=== PATIENT | male | born 1965 | race Caucasian/White ===

== ENCOUNTER → 2020-05-12 | Outpatient (CLI) | payer BC ==
--- NOTE | 2020-05-12 10:24 | XR ---
Lumbar spine HISTORY: Low back pain 3 views the lumbar spine Hypertrophic spondylosis is noted. There is mild spinal curvature. Lumbar vertebral bodies show prese rved height. Loss of disc height present at intervertebral levels especially L4-5, L3-4, L2-3, minima l retrolisthesis grade 1 L3-4, L4-5. Sclerosis present in the posterior elements of the lower lumbar spine. Atherosclerotic vascular calcifications noted in the aortoiliac distribution. IMPRESSION: Degenerative disc disease, lumbar facet arthropathy. Spinal curvature.
--- NOTE | 2020-05-12 10:26 | XR ---
Right knee HISTORY: Pain in right knee Frontal and lateral views of the right knee Bone mineralization, joint spaces and alignment are maintained. Difficult to exclude minimal effusion , faint suprapatellar increased attenuation noted. There is overlying artifact. There are vascular ca lcifications present. No fracture or dislocation. IMPRESSION: Possible small joint effusion
--- NOTE | 2020-05-12 11:33 | CT ---
EXAMINATION TYPE: CT abdomen wo/w con DATE OF EXAM: 05/12/2020 COMPARISON: NONE HISTORY: 54-year-old male Chronic pancreatitis TECHNIQUE: Contiguous axial scanning of the abdomen before and after administration of 100 ml Isovue 300 IV contrast. Arterial and portal venous phase imaging is performed. Coronal/sagittal reconstruct ions performed. CT DLP: 1055.5 mGycm Automated exposure control for dose reduction was used. FINDINGS: Heart normal size without pericardial effusion. Three-vessel coronary artery calcifications are prese nt in remarkable for coronary artery disease. Some reticular subpleural opacities in the visualized l ower lungs suggesting interstitial fibrosis. No pleural effusion. Small hiatal hernia. There are geographic areas of low-attenuation within the liver especially the right liver lobe. Findi ng suspect reflect areas of hepatic steatosis. Portal venous system is patent. No biliary ductal dila tation. Gallbladder, adrenal glands, kidneys, and spleen appear within normal limits. Assessment of the pancreas shows no abnormal mass or calcifications. No evident dilatation of the destiny n pancreatic duct. No surrounding inflammatory changes or fluid collection is identified. No dilated small bowel, free fluid, free air. No mesenteric or retroperitoneal lymphadenopathy. Mild atherosclerotic calcifications infrarenal abdominal aorta and visualized common iliac arteries. Mild stool within the colon. No pericolic inflammatory change seen. Pelvis is not imaged. Bones: Hypertrophic facet arthropathy lumbar spine with grade 1 retrolisthesis L2-L3 and L3-L4. Disc osteophyte complexes at both these levels may contribute to a significant spinal canal stenosis espec ially at L2-L3. IMPRESSION: 1. NO DISCRETE CT ABNORMALITY OF THE PANCREAS. NO SPECIFIC FINDINGS OF ACUTE OR CHRONIC PANCREATITIS AT THIS TIME. 2. GEOGRAPHIC AREAS OF LOW ATTENUATION THROUGHOUT THE RIGHT LIVER LOBE SUGGEST GEOGRAPHIC FATTY INFIL TRATION. 3. CAD AND SMALL HIATAL HERNIA. 4. DEGENERATIVE DISC DISEASE AND HYPERTROPHIC FACET ARTHROPATHY L2-L3 AND L3-L4 WITH GRADE 1 RETROLIS THESIS AT THESE LEVELS. DISC OSTEOPHYTE COMPLEX AT BOTH OF THESE LEVELS MAY CONTRIBUTE TO A SIGNIFICA NT SPINAL CANAL STENOSIS AT L2-L3.
== END | disposition home or self-care (01) ==
LOC: RADCTMAIN 08:54
PROVIDERS: ATTEND Internal Medicine Geriatric Medicine
DX: M51.36 Other intervertebral disc degeneration, lumbar region (principal); M47.816 Spondylosis without myelopathy or radiculopathy, lumbar region; M43.8X6 Other specified deforming dorsopathies, lumbar region; M25.561 Pain in right knee; K86.1 Other chronic pancreatitis; I25.10 Atherosclerotic heart disease of native coronary artery without angina pectoris; K44.9 Diaphragmatic hernia without obstruction or gangrene; M25.78 Osteophyte, vertebrae
CPT/HCPCS: 72100; 73560; 74170; Q9967

== ENCOUNTER 2024-09-23 11:06 | Observation (INO) | payer BC ==
[2024-09-23] MEDS: SODIUM CHLORIDE 0.9% 1,000 ML IV ONE (11:54)
[2024-09-23 12:04] LABS: Basophils # (A) 0.06 10*3/uL (0.00-0.10); Basophils % (A) 0.7 %; Eosinophils # (A) 0.01 10*3/uL (0.04-0.35); Eosinophils % (A) 0.1 %; HCT 43.6 % (39.6-50.0); HGB 15.9 g/dL (13.0-17.0); Lymphocytes # (A) 0.74 10*3/uL (0.90-5.00); Lymphocytes % (A) 8.3 %; MCH 35.5 pg (27.0-32.0); MCHC 36.5 g/dL (32.0-37.0); MCV 97.3 fL (80.0-97.0); Mean Platelet Volume 9.6 fL (9.5-12.2); Monocytes # (A) 0.73 10*3/uL (0.20-1.00); Monocytes % (A) 8.2 %; Neutrophils # (A) 7.27 10*3/uL (1.80-7.70); Platelet Count 123 10*3/uL (140-440); RBC 4.48 10*6/uL (4.40-5.60); RDW 11.9 % (11.5-14.5); WBC 8.87 10*3/uL (4.50-10.00)
--- NOTE | 2024-09-23 12:10 | XR ---
EXAMINATION TYPE: XR chest 2V DATE OF EXAM: 09/23/2024 12:03 PM COMPARISON: None. CLINICAL INDICATION: Male, 59 years old with history of Weakness, TECHNIQUE: XR chest 2V view(s) obtained. FINDINGS: The heart size is normal. The pulmonary vasculature is normal. The lungs are clear. IMPRESSION: 1. No acute pulmonary process. [facility], , 09/23/2024 12:08 PM
[2024-09-23 12:17] LABS: ALT 46 U/L (4-49); African American GFR (CKD) >90 (>60 ml/min/1.73 sqM); Albumin 4.6 g/dL (3.5-5.0); Anion Gap 17 mmol/L; Blood Urea Nitrogen 11 mg/dL (9-20); Calcium 9.7 mg/dL (8.4-10.2); Carbon Dioxide 29 mmol/L (22-30); Chloride 83 mmol/L (98-107); Glucose 134 mg/dL (74-99); Non-African American GFR(CKD) >90 (>60 ml/min/1.73 sqM); Sodium 129 mmol/L (137-145); Total Bilirubin 2.3 mg/dL (0.2-1.3); Total Protein 7.9 g/dL (6.3-8.2)
[2024-09-23 12:18] LABS: INR 1.1 (<1.2); Partial Thromboplastin Time 24.3 sec (22.0-30.0); Prothrombin Time 11.8 sec (10.0-12.5)
[2024-09-23 12:25] LABS: NT-Pro-B-Type Natriuretic Pept 90 pg/mL
[2024-09-23 12:39] LABS: Magnesium 1.1 mg/dL (1.6-2.3); Potassium 3.2 mmol/L (3.5-5.1)
[2024-09-23 12:40] LABS: AST 119 U/L (17-59); Alkaline Phosphatase 142 U/L (38-126)
--- NOTE | 2024-09-23 13:17 | CT ---
EXAMINATION TYPE: CT ChestAbdPelvis w con DATE OF EXAM: 09/23/2024 1:08 PM COMPARISON: 05/12/2020 CLINICAL INDICATION: Male, 59 years old with history of pain, weakness; PHH, WEAKNESS, LETHARDY, CP A ND PRESSURE, SOB Technique: CT ChestAbdPelvis w con; Multiple axial images were obtained. Two-dimensional coronal and sagittal reconstructions were obtained. Contrast used:100 ML mL of Isovue 300 with IV Contrast, (None if empty) Oral contrast used: without Oral Contrast CT DLP: 1053 mGycm, Automated exposure control for dose reduction was used. Findings: CHEST: LUNGS/ PLEURA: No focal consolidation, pneumothorax or pleural effusion. Prominent predominantly nader pheral interstitial lung markings. AIRWAY: Patent and unremarkable. HEART: Size within normal limits. Mild coronary artery calcifications present. MEDIASTINUM: No gross evidence of adenopathy. Prominent lymph nodes seen near the distal esophagus no t significantly changed from 05/12/2020. Epiphrenic esophageal diverticulum. VASCULATURE: No aortic aneurysm. MUSCULOSKELETAL: No acute osseous abnormalities. SOFT TISSUES/LYMPH NODES: Unremarkable. LOWER NECK: No significant findings. ABDOMEN: ABDOMEN LIVER: Diffusely hypoattenuating parenchyma. GALLBLADDER AND BILE DUCTS: Unremarkable. PANCREAS: Unremarkable. SPLEEN: Unremarkable. ADRENAL GLANDS: Unremarkable. KIDNEYS AND URETERS: No evidence of hydronephrosis or obstructing renal calculus. The ureters are unr emarkable. PELVIS BLADDER: Unremarkable REPRODUCTIVE: Unremarkable. ABDOMEN & PELVIS STOMACH AND BOWEL: No evidence of bowel obstruction. Scattered colonic diverticula. The appendix is n ormal. PERITONEUM/RETROPERITONEUM: No evidence of pneumoperitoneum or free fluid. VASCULATURE: No evidence of aortic aneurysm. MUSCULOSKELETAL: No acute osseous abnormalities LYMPH NODES: No gross evidence for lymphadenopathy. SOFT TISSUE/ABDOMINAL WALL: Fat-containing umbilical hernia. IMPRESSION: 1. No evidence for acute thoracic or abdominal process. 2. Epiphrenic esophageal diverticulum. 3. Fat-containing umbilical hernia. 4. Hepatic steatosis. 5. Colonic diverticulosis. 6. Interstitial lung markings are normal in the periphery correlate for NSIP 7. No evidence for lymphadenopathy or mass 8. Mild coronary artery calcifications. Follow up recommendations for incidental pulmonary nodules are per [employer] [place] or [employer]. [facility], Workstation: [id number], 09/23/2024 1:15 PM
--- NOTE | 2024-09-23 13:24 | ED ---
Weakness HPI - General Chief complaint: Weakness Stated complaint: SOB,Weakness Time Seen by Provider: 09/23/24 11:28 Source: patient, RN notes reviewed Mode of arrival: ambulatory Limitations: no limitations - History of Present Illness Initial comments: 59-year-old male presents emergency department complaint of weakness, dyspnea. Patient states that with any short distance walk, or exertion he has extreme shortness of breath, fatigue and palpitations. He states his heart starts racing around. Patient states that few months back he developed an allergy to lisinopril in which she had angioedema he was switched to Cardizem at this time. Patient states that ever since then has had worsening symptoms he states he cannot walk more than 10 feet without feeling short of breath. Patient states this is causing him to feel extremely fatigued he states his heart races around. He also admits to significant weight loss unintentional he states he can hardly eat or drink. Patient states he did have stress test recently which was unremarkable. Patient denies any prior lung disease - Related Data Home Medications Medication Instructions Recorded Confirmed Atorvastatin [Lipitor] 20 mg PO DAILY 04/19/19 04/24/19 DULoxetine HCL [Cymbalta] 30 mg PO DAILY 04/19/19 04/24/19 lisinopriL [Zestril] 10 mg PO DAILY 04/19/19 04/24/19 Allergies Allergy/AdvReac Type Severity Reaction Status Date / Time SHAAN Inhibitors Allergy Anaphylaxis Verified 09/23/24 11:19 Penicillins Allergy Itching Verified 04/24/19 08:44 Review of Systems ROS Statement: Those systems with pertinent positive or pertinent negative responses have been documented in the HPI. ROS Other: All systems not noted in ROS Statement are negative. Past Medical History Past Medical History: Hyperlipidemia, Hypertension Additional Past Medical History / Comment(s): 2 HERNIATED DISCS AND 2 BULGING DISCS IN BACK. NEUROPATHY DOWN RT LEG History of Any Multi-Drug Resistant Organisms: None Reported Additional Past Surgical History / Comment(s): COLONOSCOPY Past Anesthesia/Blood Transfusion Reactions: No Reported Reaction Past Psychological History: No Psychological Hx Reported Past Alcohol Use History: Occasional Past Drug Use History: None Reported - Past Family History Mother Family Medical History: No Reported History General Exam Limitations: no limitations General appearance: alert, in no apparent distress Head exam: Present: atraumatic, normocephalic, normal inspection Eye exam: Present: normal appearance, PERRL, EOMI. Absent: scleral icterus, conjunctival injection, periorbital swelling ENT exam: Present: normal exam, normal oropharynx, mucous membranes moist Neck exam: Present: normal inspection, full ROM. Absent: tenderness, meningismus, lymphadenopathy Respiratory exam: Present: normal lung sounds bilaterally. Absent: respiratory distress, wheezes, rales, rhonchi, stridor Cardiovascular Exam: Present: normal rhythm, tachycardia, normal heart sounds. Absent: systolic murmur, diastolic murmur, rubs, gallop, clicks GI/Abdominal exam: Present: soft, normal bowel sounds. Absent: distended, tenderness, guarding, rebound, rigid Neurological exam: Present: alert, oriented X3 Psychiatric exam: Present: normal affect, normal mood Course Vital Signs 09/23/24 09/23/24 11:15 14:33 Temperature 97.8 F Pulse Rate 114 H 87 Respiratory 17 20 Rate Blood Pressure 142/94 145/97 O2 Sat by Pulse 97 97 Oximetry EKG Findings - EKG Comments: EKG Findings:: EKG performed at 11: 30 sinus rhythm rate of 91 RI 131 QRS 110 QT/QTc 358/407 - EKG Results: EKG: interpreted by SHAHRAM Medical Decision Making - Medical Decision Making Was pt. sent in by a medical professional or institution (, PA, POWERHOUSE LABORER, urgent care, hospital, or usp...) When possible be specific @ -[No] Did you speak to anyone other than the patient for history (EMS, parent, family, police, friend...)? What history was obtained from this source @ -No Did you review nursing and triage notes (agree or disagree)? Why? @ -I reviewed and agree with nursing and triage notes Were old charts reviewed (outside hosp., previous admission, EMS record, old EKG, old radiological studies, urgent care reports/EKG's, usp records)? Report findings @ -No old charts were reviewed Differential Diagnosis (chest pain, altered mental status, abdominal pain women, abdominal pain men, vaginal bleeding, weakness, fever, dyspnea, syncope, headache, dizziness, GI bleed, back pain, seizure, CVA, palpatations, mental health, musculoskeletal)? @ -Differential Palpitations Ventricular arrhythmias, atrial arrhythmias, myocardial infarction, anemia, thyrotoxicosis, electrolyte imbalance, hypokalemia, pulmonary embolism, pulmonary disease, drugs, alcohol, anxiety, stress.... This is not meant to be an all-inclusive list. Differential Weakness: Hypoglycemia, shock, sepsis, hyponatremia, anemia, infection, TN, ETOH, adverse medicine reaction, overdose, stroke, this is not meant to be an all-inclusive list. EKG interpreted by me (3pts min.). @ -As above X-rays interpreted by me (1pt min.). @ -Chest x-ray shows no acute cardiopulmonary process CT interpreted by me (1pt min.). @ -CT chest abdomen pelvis showing no acute intrathoracic process, intra- abdominal process at this time U/S interpreted by me (1pt. min.). @ -None done What testing was considered but not performed or refused? (CT, X-rays, U/S, labs)? Why? @ -None What meds were considered but not given or refused? Why? @ -None Did you discuss the management of the patient with other professionals (prof essionals i.e. , PA, POWERHOUSE LABORER, lab, RT, psych nurse, social work program coordinator, antisubmarine weapons officer, teacher, precinct commanding officer, case checker)? Give summary @ -Dr. Barbosa for admission Was smoking cessation discussed for >3mins.? @ -No Was critical care preformed (if so, how long)? @ -[35 minutes Were there social determinants of health that impacted care today? How? (Homelessness, low income, unemployed, alcoholism, drug addiction, transportation, low edu. Level, literacy, decrease access to med. care, mcc, rehab)? @ -No Was there de-escalation of care discussed even if they declined (Discuss DNR or withdrawal of care, Hospice)? DNR status @ -No What co-morbidities impacted this encounter? (DM, HTN, Smoking, COPD, CAD, C ancer, CVA, ARF, Chemo, Hep., AIDS, mental health diagnosis, sleep apnea, morbid obesity)? @ -None Was patient admitted / discharged? Hospital course, mention meds given and route, prescriptions, significant lab abnormalities, going to OR and other pertinent info. @ -Admit patient presented for increasing weakness palpitations. Patient does have a significant exertional dyspnea and tachycardia heart rates in the 130s. Patient found to have hypomagnesemia, hypokalemia hyponatremia starting IV f luids, mag and potassium replacement will have cardiology, pulmonology evaluation. Undiagnosed new problem with uncertain prognosis? @ -No Drug Therapy requiring intensive monitoring for toxicity (Heparin, Nitro, Insulin, Cardizem)? @ -No Were any procedures done? @ -No Diagnosis/symptom? @ -Exertional dyspnea, tachycardia, hypomagnesemia hypokalemia Acute, or Chronic, or Acute on Chronic? @ -Acute Uncomplicated (without systemic symptoms) or Complicated (systemic symptoms)? @ -Complicated Side effects of treatment? @ -No Exacerbation, Progression, or Severe Exacerbation? @ -No Poses a threat to life or bodily function? How? (Chest pain, [place], TN, pneumonia, PE, COPD, DKA, ARF, appy, cholecystitis, CVA, Diverticulitis, Homicidal, Suicidal, threat to staff... and all critical care pts) @ -Yes risk cardiac function - Lab Data Result diagrams: 09/23/24 11:52 09/23/24 11:52 Lab Results 09/23/24 09/23/24 09/23/24 Range/Units 11:52 11:52 11:52 WBC 8.87 (4.50-10.00) 10*3/uL RBC 4.48 (4.40-5.60) 10*6/uL Hgb 15.9 (13.0-17.0) g/dL Hct 43.6 (39.6-50.0) % MCV 97.3 H (80.0-97.0) fL MCH 35.5 H (27.0-32.0) pg MCHC 36.5 (32.0-37.0) g/dL Plt Count 123 L (140-440) 10*3/uL MPV 9.6 (9.5-12.2) fL Immature Gran % (Auto) 0.7 % Neutrophils % 82.0 % Lymphocytes % 8.3 % Monocytes % 8.2 % Eosinophils % 0.1 % Basophils % 0.7 % Immature Gran # 0.06 H (0.00-0.04) 10*3/uL Neutrophils # 7.27 (1.80-7.70) 10*3/uL Lymphocytes # 0.74 L (0.90-5.00) 10*3/uL Monocytes # 0.73 (0.20-1.00) 10*3/uL Eosinophils # 0.01 L (0.04-0.35) 10*3/uL Basophils # 0.06 (0.00-0.10) 10*3/uL PT 11.8 (10.0-12.5) sec INR 1.1 (<1.2) APTT 24.3 (22.0-30.0) sec D-Dimer 0.34 (<0.60) mg/L FEU Sodium 129 L (137-145) mmol/L Potassium 3.2 L (3.5-5.1) mmol/L Chloride 83 L (98-107) mmol/L Carbon Dioxide 29 (22-30) mmol/L Anion Gap 17 mmol/L BUN 11 (9-20) mg/dL Creatinine 0.87 (0.66-1.25) mg/dL Est GFR (CKD-EPI)AfAm >90 (>60 ml/min/1.73 sqM) Est GFR (CKD-EPI)NonAf >90 (>60 ml/min/1.73 sqM) Glucose 134 H (74-99) mg/dL Plasma Lactic Acid Manas (0.7-2.0) mmol/L Calcium 9.7 (8.4-10.2) mg/dL Magnesium 1.1 L (1.6-2.3) mg/dL Total Bilirubin 2.3 H (0.2-1.3) mg/dL AST 119 H (17-59) U/L ALT 46 (4-49) U/L Alkaline Phosphatase 142 H (38-126) U/L Troponin I (0.000-0.034) ng/mL NT-Pro-B Natriuret Pep 90 pg/mL Total Protein 7.9 (6.3-8.2) g/dL Albumin 4.6 (3.5-5.0) g/dL 09/23/24 09/23/24 Range/Units 11:52 11:52 WBC (4.50-10.00) 10*3/uL RBC (4.40-5.60) 10*6/uL Hgb (13.0-17.0) g/dL Hct (39.6-50.0) % MCV (80.0-97.0) fL MCH (27.0-32.0) pg MCHC (32.0-37.0) g/dL Plt Count (140-440) 10*3/uL MPV (9.5-12.2) fL Immature Gran % (Auto) % Neutrophils % % Lymphocytes % % Monocytes % % Eosinophils % % Basophils % % Immature Gran # (0.00-0.04) 10*3/uL Neutrophils # (1.80-7.70) 10*3/uL Lymphocytes # (0.90-5.00) 10*3/uL Monocytes # (0.20-1.00) 10*3/uL Eosinophils # (0.04-0.35) 10*3/uL Basophils # (0.00-0.10) 10*3/uL PT (10.0-12.5) sec INR (<1.2) APTT (22.0-30.0) sec D-Dimer (<0.60) mg/L FEU Sodium (137-145) mmol/L Potassium (3.5-5.1) mmol/L Chloride (98-107) mmol/L Carbon Dioxide (22-30) mmol/L Anion Gap mmol/L BUN (9-20) mg/dL Creatinine (0.66-1.25) mg/dL Est GFR (CKD-EPI)AfAm (>60 ml/min/1.73 sqM) Est GFR (CKD-EPI)NonAf (>60 ml/min/1.73 sqM) Glucose (74-99) mg/dL Plasma Lactic Acid Manas 1.6 (0.7-2.0) mmol/L Calcium (8.4-10.2) mg/dL Magnesium (1.6-2.3) mg/dL Total Bilirubin (0.2-1.3) mg/dL AST (17-59) U/L ALT (4-49) U/L Alkaline Phosphatase (38-126) U/L Troponin I 0.014 (0.000-0.034) ng/mL NT-Pro-B Natriuret Pep pg/mL Total Protein (6.3-8.2) g/dL Albumin (3.5-5.0) g/dL Critical Care Time Critical Care Time: Yes Total Critical Care Time: 35 Disposition Clinical Impression: Hypokalemia, Hypomagnesemia, Exertional dyspnea, Tachycardia Disposition: ADMITTED IP TO THIS HOSP Condition: Fair Referrals: Dennis Diane MD [Primary Care Provider] - 1-2 days Time of Disposition: 14:34
[2024-09-23] MEDS ORDERED: ONDANSETRON 4 MG/2 ML VIAL IVP PRN (14:34)
[2024-09-23] MEDS ORDERED: ACETAMINOPHEN TAB 325 MG TAB PO PRN (14:34)
[2024-09-23] MEDS ORDERED: NALOXONE 0.4 MG/ML 1 ML VIAL IV PRN (14:34)
[2024-09-23] MEDS: POTASSIUM CHLORIDE 10 MEQ in WATER FOR INJECTION 1 100ML.BAG IVPB STA ×2 (15:27→16:41)
[2024-09-23] MEDS: POTASSIUM CHLORIDE ER 20 MEQ TAB.ER PO STA (15:27)
[2024-09-23] MEDS: MAGNESIUM SULFATE-D5W PMX 1 GM in DEXTROSE/WATER 1 100ML.BAG IVPB SCH (15:39)
[2024-09-23] MEDS ORDERED: busPIRone HCl 5 MG TAB PO PRN (19:15)
--- NOTE | 2024-09-23 19:34 | P.HPIM ---
History of Present Illness H&P Date: 09/23/24 Chief Complaint: Weakness Patient is a 59-year-old male with a past medical history of hypertension, hyperlipidemia, microscopic colitis, daily smoking half pack per day and alcohol use presents to ER with complaints of generalized weakness, lethargy and dizziness and shortness of breath. Patient states that he has been having nausea vomiting and unable to tolerate oral intake. Patient states that his hiatal hernia is also acting up. Patient states that he lost about 20 LB's during the last 2 to 3 weeks. Patient states that about 3 weeks ago he had lip swelling due to SHAAN inhibitor's and his blood pressure medications were changed to Cardizem 120 mg daily. He has been taking Cardizem for the past 2 weeks. He was also having exertional shortness of breath and palpitations. He felt like his heart was racing a fast. He has been having worsening symptoms and could not walk more than 10 feet without shortness of breath. Patient states that he did have stress test recently which was unremarkable. Denied any prior diagnosis of COPD. Patient does smoke about half pack per day and 6 drinks per week especially on the weekends. Patient follows with Dr. Diane. Chest x-ray showed no acute cardiopulmonary process. CT abdomen pelvis and chest showed no evidence of acute intrathoracic or abdominal process. Epiphrenic esophageal diverticulum. Fat-containing umbilical hernia. Hepatic steatosis. Correlate with diverticulosis. Interstitial lung markings are normal in the periphery correlate for NSIP. No evidence for lymphadenopathy or mass. Mild coronary artery calcifications. EKG showed normal sinus rhythm. Laboratory data showed WBC 8.8 hemoglobin 15.9 and MCV 97.3 and platelets 123, D-dimer 0.34 Sodium 129 potassium 3.2 chloride 83 bicarb is 29 BUN 11 creatinine 0.87 and blood sugar 134 magnesium 1.1 and total bili 2.3, AST 119, ALT 46 and alk phos 142 proBNP 90 and albumin 4.6 Review of Systems Constitutional: Patient denies any fever or chills . Generalized weakness fatigue and weight loss. Ss. Abdomen: Nausea vomiting. No diarrhea. No abdominal pain.. Cardiovascular: Patient denies any chest pain. Positive for short of breath no palpitations. No leg swelling Respiratory: patient denied any cough or sputum production. No shortness of breath Neurologic: Patient denied any numbness or tingling. no headache. Musculoskeletal: Patient denies any complaints of joint swelling or deformity. Skin: Negative Psychiatric: Negative Endocrine: No heat or cold intolerance. No recent weight gain. Genitourinary: No dysuria or hematuria. All other 14 point ROS negative except the above Past Medical History Past Medical History: Hyperlipidemia, Hypertension Additional Past Medical History / Comment(s): 2 HERNIATED DISCS AND 2 BULGING D ISCS IN BACK. NEUROPATHY DOWN RT LEG History of Any Multi-Drug Resistant Organisms: None Reported Additional Past Surgical History / Comment(s): COLONOSCOPY Past Anesthesia/Blood Transfusion Reactions: No Reported Reaction Past Psychological History: No Psychological Hx Reported Past Alcohol Use History: Occasional Past Drug Use History: None Reported - Past Family History Mother Family Medical History: No Reported History Father Additional Family Medical History / Comment(s): Heart Disease Medications and Allergies Home Medications Medication Instructions Recorded Confirmed Type Atorvastatin [Lipitor] 20 mg PO DAILY 04/19/19 09/23/24 History DULoxetine HCL [Cymbalta] 60 mg PO DAILY 09/23/24 09/23/24 History Ibuprofen [Motrin Ib] 600 mg PO Q6H PRN 09/23/24 09/23/24 History Ofloxacin 0.3% Ophth Soln [Ocuflox 1 drop LEFT EYE QID 09/23/24 09/23/24 History Ophth Soln] Triamcinolone 0.5% Ointment 1 applic TOPICAL BID PRN 09/23/24 09/23/24 History busPIRone HCl [Buspar] 5 mg PO BID PRN 09/23/24 09/23/24 History dilTIAZem HCL [Tiazac] 120 mg PO DAILY 09/23/24 09/23/24 History tadalafiL 10 mg PO DAILY PRN 09/23/24 09/23/24 History Allergies Allergy/AdvReac Type Severity Reaction Status Date / Time SHAAN Inhibitors Allergy Anaphylaxis Verified 09/23/24 17:21 Penicillins Allergy Itching Verified 09/23/24 17:21 Physical Exam Vitals: Vital Signs Temp Pulse Resp BP Pulse Ox 09/23/24 14:33 87 20 145/97 97 09/23/24 11:15 97.8 F 114 H 17 142/94 97 Intake and Output 09/23/24 09/23/24 09/23/24 06:59 14:59 22:59 Other: Weight 81.647 kg PHYSICAL EXAMINATION: Patient is lying in the bed,, no acute distress, awake alert and oriented but anxious... HEENT: Normocephalic. Neck is supple. Pupils reactive. Nostrils clear. Oral cavity is moist. Neck reveals no JVD, carotid bruits, or thyromegaly. CHEST EXAMINATION: Trachea is central. Symmetrical expansion. Bilateral scattered coarse sounds and mild expiratory wheeze. Nonlabored breathing. CARDIAC: Normal S1, S2 with no gallops. No murmurs ABDOMEN: Soft. Bowel sounds normal. No organomegaly. No abdominal bruits. Extremities: reveal no edema. No clubbing or cyanosis Neurologically awake, alert, oriented x3 with well-coordinated movements. No focal deficits noted Skin: No rash or skin lesions. Psychiatric: Coperative. Nonsuicidal, anxious. Musculoskeletal: No joint swelling or deformity. Normal range of motion. Results CBC & Chem 7: 09/23/24 11:52 09/23/24 11:52 Labs: Abnormal Lab Results - Last 24 Hours (Table) 09/23/24 09/23/24 Range/Units 11:52 11:52 MCV 97.3 H (80.0-97.0) fL MCH 35.5 H (27.0-32.0) pg Plt Count 123 L (140-440) 10*3/uL Immature Gran # 0.06 H (0.00-0.04) 10*3/uL Lymphocytes # 0.74 L (0.90-5.00) 10*3/uL Eosinophils # 0.01 L (0.04-0.35) 10*3/uL Sodium 129 L (137-145) mmol/L Potassium 3.2 L (3.5-5.1) mmol/L Chloride 83 L (98-107) mmol/L Glucose 134 H (74-99) mg/dL Magnesium 1.1 L (1.6-2.3) mg/dL Total Bilirubin 2.3 H (0.2-1.3) mg/dL AST 119 H (17-59) U/L Alkaline Phosphatase 142 H (38-126) U/L Thrombosis Risk Factor Assmnt - DVT/VTE Prophylaxis DVT/VTE Prophylaxis: Pharmacologic Prophylaxis ordered Assessment and Plan Assessment: Exertional shortness of breath with possible underlying COPD. CTA chest showed correlate for NSIP. D-dimer not elevated. proBNP 90. Generalized weakness, fatigue, dizziness, N/V and weight loss. Sinus tachycardia Hepatic steatosis Ongoing nicotine addiction Alcohol use disorder Severe hypokalemia and hypomagnesemia Thrombocytopenia due to alcohol use Transaminitis AST greater than ALT and hyperbilirubinemia with bilirubin level 2.3 Hypertension Hyperlipidemia History of microscopic colitis Generalized anxiety/depression. Patient is on BuSpar and Cymbalta at home. GI prophylaxis Pepcid DVT prophylax with heparin subcu Plan: Patient will be continued on telemonitoring. Was given fluid bolus in the ER. Continue to replace magnesium and potassium. Started on DuoNebs. Follow-up TSH and procalcitonin levels. Started back on home medications. Thiamine multivitamins. Pulmonary and cardiology was consulted for evaluation. Follow-up closely. Smoking cessation and alcohol abstinence has been counseled extensively. Monitor for alcohol withdrawal symptoms. Time with Patient: Greater than 30
[2024-09-23] MEDS: FAMOTIDINE 20 MG/2 ML VIAL IV SCH (20:57)
[2024-09-23] MEDS: THIAMINE 100 MG TAB PO SCH (21:35)
[2024-09-23] MEDS: IPRATROPIUM-ALBUTEROL 3 ML NEB INHALATION SCH (21:41)
[2024-09-24] MEDS: HEPARIN SODIUM,PORCINE 5,000 UNIT/ML 1 ML VIAL SQ SCH (00:12)
--- NOTE | 2024-09-24 03:53 | P.CNPUL ---
History of Present Illness Consult date: 09/24/24 Requesting physician: Evan Chatman Reason for consult: dyspnea Chief complaint: Severe weakness, syncope History of present illness: Patient is a 59-year-old male with past medical history significant for hyperlipidemia, hypertension. Presented to the emergency department yesterday morning with a chief complaint of extreme weakness. Also, associated fatigue, heart palpitations, and difficulty breathing on exertion. Did have a near syncopal event where he fell and hit his face at work. Patient states this all started 3 weeks ago after having allergic reaction which was attributed to his lisinopril. He had facial and tongue swelling. Lisinopril is since been discontinued. He states that he has had some nausea and vomiting and unable to eat. His appetite has been severely reduced. He has lost approximately 20 pounds over the last few weeks. Pulmonary consultation was placed for exertional dyspnea. Patient has no known pre-existing lung disease. He does smoke cigarettes 1/2 packs/day. Workup in the emergency department including a CT of the chest, abdomen, pelvis without contrast remarkable for predominantly peripheral based interstitial fibrotic changes. No widespread honeycombing. Concerning for possible NSIP. No acute cardiopulmonary process. Labs including a CBC with a WBC count of 8.9, hemoglobin 15.9, platelets 123. D-dimer 0.34. BMP with a sodium 129, Tessman 3.2, chloride 83, BUN 11, creatinine 0.87, glucose 134. Magnesium 1.1. Troponin 0.014. NT proBNP 90. EKG: Normal sinus rhythm, rate 91 bpm, no ectopy. No acute ischemic changes. Did have a Lexiscan stress stress on September 13, which did not show any stress-induced ischemic changes. TSH 4.59. Procalcitonin level 0.24. Patient currently being evaluated on the general medical floor. He is currently resting comfortably on room air. Denies any chest pain. Denies any cough or sputum production. Denies any fevers or chills. Denies any history of autoimmune disease. States his severe weakness and shortness of breath have resolved after electrolyte replacement. Most recent vital signs including a temperature of 97.9 F, heart rate 85 bpm, blood pressure 109/72 mmHg, nontachypneic, SpO2 was recorded at 95% on room air. Review of Systems Constitutional: Reports fatigue, Reports poor appetite, Reports weight loss, Denies chills, Denies fever, Denies lethargy, Denies night sweats, Denies weight gain Ears, nose, mouth and throat: Denies headache, Denies nasal congestion, Denies nasal discharge, Denies neck fullness/pressure, Denies post-nasal drip, Denies sinus pain, Denies sinus pressure, Denies sore throat Cardiovascular: Reports dyspnea on exertion, Denies chest pain, Denies leg e zac, Denies lightheadedness, Denies orthopnea, Denies palpitations, Denies paroxysmal nocturnal dyspnea, Denies shortness of breath Respiratory: Denies congestion, Denies cough, Denies hemoptysis, Denies pain, Denies respiratory infections, Denies wheezing Gastrointestinal: Reports loss of appetite, Reports nausea, Denies abdominal pain, Denies change in bowel habits, Denies diarrhea, Denies vomiting Genitourinary: Denies dysuria Musculoskeletal: Denies limitation of motion Integumentary: Denies rash Neurological: Reports syncope, Denies seizures Psychiatric: Denies anxiety, Denies depression Past Medical History Past Medical History: Hyperlipidemia, Hypertension Additional Past Medical History / Comment(s): 2 HERNIATED DISCS AND 2 BULGING DISCS IN BACK. NEUROPATHY DOWN RT LEG History of Any Multi-Drug Resistant Organisms: None Reported Additional Past Surgical History / Comment(s): COLONOSCOPY Past Anesthesia/Blood Transfusion Reactions: No Reported Reaction Past Psychological History: No Psychological Hx Reported Past Alcohol Use History: Occasional Past Drug Use History: None Reported - Past Family History Mother Family Medical History: No Reported History Father Additional Family Medical History / Comment(s): Heart Disease Medications and Allergies Home Medications Medication Instructions Recorded Confirmed Type Atorvastatin [Lipitor] 20 mg PO DAILY 04/19/19 09/23/24 History DULoxetine HCL [Cymbalta] 60 mg PO DAILY 09/23/24 09/23/24 History Ibuprofen [Motrin Ib] 600 mg PO Q6H PRN 09/23/24 09/23/24 History Ofloxacin 0.3% Ophth Soln [Ocuflox 1 drop LEFT EYE QID 09/23/24 09/23/24 History Ophth Soln] Triamcinolone 0.5% Ointment 1 applic TOPICAL BID PRN 09/23/24 09/23/24 History busPIRone HCl [Buspar] 5 mg PO BID PRN 09/23/24 09/23/24 History dilTIAZem HCL [Tiazac] 120 mg PO DAILY 09/23/24 09/23/24 History tadalafiL 10 mg PO DAILY PRN 09/23/24 09/23/24 History Allergies Allergy/AdvReac Type Severity Reaction Status Date / Time SAHAN Inhibitors Allergy Anaphylaxis Verified 09/23/24 17:21 Penicillins Allergy Itching Verified 09/23/24 17:21 Physical Exam Vitals: Vital Signs Temp Pulse Pulse Resp BP BP BP 09/24/24 00:41 97.9 F 85 16 109/72 09/23/24 20:06 97.9 F 88 16 133/84 09/23/24 17:57 98.9 F 83 18 135/81 09/23/24 17:49 98.9 F 83 18 135/81 09/23/24 17:27 87 18 138/89 09/23/24 14:33 87 20 145/97 09/23/24 11:15 97.8 F 114 H 17 142/94 Pulse Ox 09/24/24 00:41 95 09/23/24 20:06 96 09/23/24 17:57 96 09/23/24 17:49 96 09/23/24 17:27 97 09/23/24 14:33 97 09/23/24 11:15 97 Intake and Output 09/23/24 09/23/24 09/24/24 14:59 22:59 06:59 Intake Total 1190 Balance 1190 Intake: Oral 1190 Other: # Voids 1 Weight 81.647 kg 81.647 kg GENERAL EXAM: Alert, well-nourished, 59-year-old male, comfortable in no apparent distress. HEAD: Normocephalic and atraumatic EYES: Normal reaction of pupils, equal size. NOSE: Clear with pink turbinates. THROAT: No erythema or exudates. NECK: No masses, no JVD. CHEST: No chest wall deformity. LUNGS: Equal air entry with bibasilar Velcro crackles. On room air. No conversational dyspnea or accessory muscle use.. CVS: S1 and S2 normal with no audible murmur, regular rhythm. No extra heart sounds ABDOMEN: No hepatosplenomegaly, active bowel sounds, no guarding or rigidity. SPINE: No scoliosis or deformity SKIN: No rashes CENTRAL NERVOUS SYSTEM: No focal deficits, tone is normal in all 4 extremities. EXTREMITIES: There is no peripheral edema, clubbing, or cyanosis. Peripheral pulses are intact. Results - Laboratory Findings CBC and BMP: 09/23/24 11:52 09/23/24 11:52 PT/INR, D-dimer PT 11.8 sec (10.0-12.5) 09/23/24 11:52 INR 1.1 (<1.2) 09/23/24 11:52 D-Dimer 0.34 mg/L FEU (<0.60) 09/23/24 11:52 Abnormal lab findings: Abnormal Labs 09/23/24 09/23/24 11:52 11:52 MCV 97.3 H MCH 35.5 H Plt Count 123 L Immature Gran # 0.06 H Lymphocytes # 0.74 L Eosinophils # 0.01 L Sodium 129 L Potassium 3.2 L Chloride 83 L Glucose 134 H Magnesium 1.1 L Total Bilirubin 2.3 H AST 119 H Alkaline Phosphatase 142 H - Diagnostic Findings Chest x-ray: image reviewed CT scan - chest: image reviewed Assessment and Plan Assessment: Recent allergic reaction/angioedema, secondary to lisinopril, which has since been discontinued Multiple electrolyte imbalances including hypomagnesemia, hypokalemia, hy ponatremia; which are being corrected Generalized weakness, secondary to above Exertional dyspnea Pulmonary fibrosis; CT of the chest, abdomen, pelvis without contrast remarkable for predominantly peripheral based interstitial fibrotic changes. No widespread honeycombing. Concerning for possible NSIP Chronic tobacco use, currently smoking 1/2 pack/day Hypertension History of hyperlipidemia Anxiety/depression Plan: Patient's medications, labs, imaging reviewed Currently on room air CT of chest, abdomen, pelvis noted Consider outpatient pulmonary function test and outpatient follow-up Smoking cessation counseling performed and nicotine patch offered Electrolytes being monitored and replaced per protocol Case to be reviewed with Dr. Toledo, and further recommendations to follow I have personally seen and examined the patient, performed the documentation and the assessment and plan as written. Number of minutes spent on the visit:20 Time with Patient: Greater than 30
[2024-09-24 08:08] LABS: Basophils # (A) 0.04 X 10*3/uL (0.00-0.10); Basophils % (A) 0.9 %; Eosinophils # (A) 0.03 X 10*3/uL (0.04-0.35); Eosinophils % (A) 0.6 %; HCT 37.6 % (39.6-50.0); HGB 13.2 g/dL (13.0-17.0); MCH 35.6 pg (27.0-32.0); MCHC 35.1 g/dL (32.0-37.0); MCV 101.3 FL (80.0-97.0); Mean Platelet Volume 10.2 FL (9.5-12.2); Monocytes # (A) 0.59 X 10*3/uL (0.20-1.00); Monocytes % (A) 12.6 %; NRBC Per 100 WBC 0 X 10*3/uL (0.00-0.01); Neutrophils % (A) 70.5 %; Platelet Count 102 X 10*3/uL (140-440); RBC 3.71 X 10*6/uL (4.40-5.60); RDW 12.1 % (11.5-14.5); WBC 4.68 X 10*3/uL (4.50-10.00)
[2024-09-24 08:55] LABS: ALT 35 U/L (10-49); AST 99 U/L (14-35); Albumin 3.3 g/dL (3.8-4.9); Albumin/Globulin Ratio 1.32 Ratio (1.60-3.17); Alkaline Phosphatase 118 U/L (41-126); Blood Urea Nitrogen 6.8 mg/dL (9.0-27.0); Calcium 8.7 mg/dL (8.7-10.3); Carbon Dioxide 27.3 mmol/L (21.6-31.8); Chloride 95 mmol/L (96-109); Globulin 2.5 g/dL (1.6-3.3); Glucose 122 mg/dL (70-110); Potassium 3.4 mmol/L (3.5-5.5); Sodium 136 mmol/L (135-145); Total Bilirubin 1.3 mg/dL (0.3-1.2); Total Protein 5.8 g/dL (6.2-8.2)
[2024-09-24] MEDS: NICOTINE 7MG/24HR PATCH TRANSDERM SCH (09:26)
[2024-09-24] MEDS: DULoxetine HCL 60 MG CAPSULE.DR PO SCH (09:26)
[2024-09-24] MEDS: POTASSIUM CHLORIDE ER 20 MEQ TAB.ER PO SCH (09:26)
[2024-09-24] MEDS: MULTIVITAMINS, THERA 1 EACH TAB PO SCH (09:26)
[2024-09-24] MEDS ORDERED: IPRATROPIUM-ALBUTEROL 3 ML NEB INHALATION PRN (10:04)
--- NOTE | 2024-09-24 10:11 | P.CRDCN ---
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 He has a past medical history of hypertension hyperli pidemia, neuropathy to the lower extremities, tobacco use and dependence. He denies history of diabetes. We have been asked to evaluate patient for exertional dyspnea and tachycardia. Patient states things started when he had an allergic reaction to lisinopril which started with lightheadedness and dizziness and then vomiting and tongue swelling. Following that this triggered his hiatal hernia and he had nausea, decreased appetite weight loss.. 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 Patient states that his heart rate was going from 80 to at rest 230 with standing. At this time he still has some dizziness. Also felt like he could not catch his breath which is improved but still there. He states he is now able to take a deep breath. He states about 1-1/2 years ago he had episodes of passing out that was unexplained and he did have an event monitor at that time. Dyspnea on exertion is not as bad. He states he has chronic wheezing in the morning and a smoker's cough. No chest pain or chest pressure. Blood pressure 131/83, heart rate in the 80s, pulse ox 96% on room air. Potassium and magnesium have been replaced. Patient is an active tobacco smoker. He drinks alcohol occasionally. -EKG: Sinus rhythm no acute changes. -Chest x-ray: No acute process. -CT chest abdomen pelvis: No acute process. Epiphrenic esophageal diverticulum. Hepatic steatosis. Colonic diverticulosis. Interstitial lung markings are normal in the periphery correlate for NSIP. No lymphadenopathy or mass. Mild coronary artery calcification. -Laboratory studies: WBC 4.6, hemoglobin 13.2. Initial sodium 129 and now 136. Potassium initially 3.2 and now 3.4. Magnesium 1.6. BUN 6.8 creatinine 1.0. Total bilirubin 1.3, AST 99. Troponin negative x 1. proBNP 90. TSH 4.59. Procalcitonin 0.24. -Home cardiac medications: Atorvastatin 20 mg daily, diltiazem 120 mg daily. -Lexiscan Cardiolite stress test performed at [facility] 09/13/24: No reversible ischemia. Review Of Systems: At the time of my exam: CONSTITUTIONAL: Denies fever or chills. HEENT: Denies blurred vision, vision changes, or eye pain. Denies hemoptysis CARDIOVASCULAR: Denies chest pain. Denies orthopnea. Denies PND. Denies palpitations RESPIRATORY: Denies shortness of breath. GASTROINTESTINAL: Denies abdominal pain. Denies nausea or vomiting. HEMATOLOGIC: Denies bleeding disorders. GENITOURINARY: Denies any blood in urine. SKIN: Denies puritis. Denies rash. Physical examination: Gen: This is 59-year-old male in no acute distress VS: reviewed HEENT: Head is atraumatic, normocephalic. Pupils equal, round. Sclerae is anicteric. NECK: Supple. No JVD. LUNGS: Clear to auscultation. No wheezes or rhonchi. No intercostal retractions. HEART: Regular rate and rhythm. No murmur. ABDOMEN: Soft No tenderness. EXTREMITIES: No pedal edema. No calf tenderness. NEUROLOGICAL: Patient is awake, alert and oriented x3. Assessment: Exertional dyspnea and tachycardia Hypokalemia and hypomagnesemia Elevated liver function tests Hypertension Hyperlipidemia Tobacco use and dependence Plan: Resume Cardizem Obtain 2-D echocardiogram and Doppler study to assess cardiac structure and function Smoking cessation: Nicotine patch and patient will be provided [place] quit line information at discharge If echocardiogram is unremarkable, patient is cleared for discharge from cardiology perspective. Patient may follow-up in the office with Dr. Crowley in 1 to 2 weeks. Thank you kindly for this consultation. Nurse practitioner note has been reviewed, I agree with documented findings and plan of care. Patient was seen and examined. Past Medical History Past Medical History: Hyperlipidemia, Hypertension Additional Past Medical History / Comment(s): 2 HERNIATED DISCS AND 2 BULGING DISCS IN BACK. NEUROPATHY DOWN RT LEG History of Any Multi-Drug Resistant Organisms: None Reported Additional Past Surgical History / Comment(s): COLONOSCOPY Past Anesthesia/Blood Transfusion Reactions: No Reported Reaction Past Psychological History: No Psychological Hx Reported Past Alcohol Use History: Occasional Past Drug Use History: None Reported - Past Family History Mother Family Medical History: No Reported History Father Additional Family Medical History / Comment(s): Heart Disease Medications and Allergies Home Medications Medication Instructions Recorded Confirmed Type Atorvastatin [Lipitor] 20 mg PO DAILY 04/19/19 09/23/24 History DULoxetine HCL [Cymbalta] 60 mg PO DAILY 09/23/24 09/23/24 History Ibuprofen [Motrin Ib] 600 mg PO Q6H PRN 09/23/24 09/23/24 History Ofloxacin 0.3% Ophth Soln [Ocuflox 1 drop LEFT EYE QID 09/23/24 09/23/24 History Ophth Soln] Triamcinolone 0.5% Ointment 1 applic TOPICAL BID PRN 09/23/24 09/23/24 History busPIRone HCl [Buspar] 5 mg PO BID PRN 09/23/24 09/23/24 History dilTIAZem HCL [Tiazac] 120 mg PO DAILY 09/23/24 09/23/24 History tadalafiL 10 mg PO DAILY PRN 09/23/24 09/23/24 History Allergies Allergy/AdvReac Type Severity Reaction Status Date / Time SHAAN Inhibitors Allergy Anaphylaxis Verified 09/23/24 17:21 Penicillins Allergy Itching Verified 09/23/24 17:21 Physical Exam Vitals: Vital Signs Temp Pulse Pulse Resp BP BP BP 09/24/24 07:40 98.1 F 83 16 131/83 09/24/24 00:41 97.9 F 85 16 109/72 09/23/24 20:06 97.9 F 88 16 133/84 09/23/24 17:57 98.9 F 83 18 135/81 09/23/24 17:49 98.9 F 83 18 135/81 09/23/24 17:27 87 18 138/89 09/23/24 14:33 87 20 145/97 09/23/24 11:15 97.8 F 114 H 17 142/94 Pulse Ox 09/24/24 07:40 96 09/24/24 00:41 95 09/23/24 20:06 96 09/23/24 17:57 96 09/23/24 17:49 96 09/23/24 17:27 97 09/23/24 14:33 97 09/23/24 11:15 97 Intake and Output 09/23/24 09/24/24 09/24/24 22:59 06:59 14:59 Intake Total 1190 1120 Balance 1190 1120 Intake: Oral 1190 1120 Other: # Voids 1 5 Weight 81.647 kg Results 09/24/24 03:37 09/24/24 03:37 Cardiac Enzymes 09/23/24 09/23/24 09/24/24 Range/Units 11:52 11:52 03:37 AST 119 H 99 H (17-59) U/L Troponin I 0.014 (0.000-0.034) ng/mL Coagulation 09/23/24 Range/Units 11:52 PT 11.8 (10.0-12.5) sec APTT 24.3 (22.0-30.0) sec CBC 09/23/24 09/24/24 Range/Units 11:52 03:37 WBC 8.87 4.68 (4.50-10.00) 10*3/uL RBC 4.48 3.71 L (4.40-5.60) 10*6/uL Hgb 15.9 13.2 (13.0-17.0) g/dL Hct 43.6 37.6 L (39.6-50.0) % Plt Count 123 L 102 L (140-440) 10*3/uL Comprehensive Metabolic Panel 09/23/24 09/24/24 Range/Units 11:52 03:37 Sodium 129 L 136 (137-145) mmol/L Potassium 3.2 L 3.4 L (3.5-5.1) mmol/L Chloride 83 L 95 L (98-107) mmol/L Carbon Dioxide 29 27.3 (22-30) mmol/L BUN 11 6.8 L (9-20) mg/dL Creatinine 0.87 1.0 (0.66-1.25) mg/dL Glucose 134 H 122 H (74-99) mg/dL Calcium 9.7 8.7 (8.4-10.2) mg/dL AST 119 H 99 H (17-59) U/L ALT 46 35 (4-49) U/L Alkaline Phosphatase 142 H 118 (38-126) U/L Total Protein 7.9 5.8 L (6.3-8.2) g/dL Albumin 4.6 3.3 L (3.5-5.0) g/dL Current Medications Generic Name Dose Route Start Last Admin Trade Name Freq PRN Reason Stop Dose Admin Acetaminophen 650 mg 09/23/24 14:34 Acetaminophen Tab 325 Mg Tab PO Q6HR PRN Mild Pain or Fever > 100.5 Albuterol/Ipratropium 3 ml 09/23/24 20:00 09/23/24 21:41 Ipratropium-Albuterol 3 Ml Neb INHALATION Not Given RT-QID VEENA Duloxetine HCl 60 mg 09/24/24 09:00 09/24/24 09:26 Duloxetine Hcl 60 Mg Capsule.Dr PO 60 mg DAILY VEENA Administration Famotidine 20 mg 09/23/24 21:00 09/24/24 09:26 Famotidine 20 Mg/2 Ml Vial IV 20 mg Q12HR VEENA Administration Heparin Sodium (Porcine) 5,000 unit 09/24/24 00:00 09/24/24 09:26 Heparin Sodium,Porcine 5,000 Unit/Ml 1 Ml Vial SQ 5,000 unit Q8HR VEENA Administration Multivitamins 1 each 09/24/24 09:00 09/24/24 09:26 Multivitamins, Thera 1 Each Tab PO 1 each DAILY VEENA Administration Naloxone HCl 0.2 mg 09/23/24 14:34 Naloxone 0.4 Mg/Ml 1 Ml Vial IV Q2M PRN Opioid Reversal Nicotine 1 patch 09/24/24 09:00 09/24/24 09:26 Nicotine 7mg/24hr Patch TRANSDERM 1 patch DAILY VEENA Administration Ondansetron HCl 4 mg 09/23/24 14:34 Ondansetron 4 Mg/2 Ml Vial IVP Q8HR PRN Nausea And Vomiting Potassium Chloride 40 meq 09/24/24 10:00 09/24/24 09:26 Potassium Chloride Er 20 Meq Tab.Er PO 09/24/24 12:01 40 meq Q2HR VEENA Administration Thiamine HCl 100 mg 09/23/24 19:30 09/24/24 09:26 Thiamine 100 Mg Tab PO 100 mg DAILY VEENA Administration Intake and Output 09/23/24 09/24/24 09/24/24 22:59 06:59 14:59 Intake Total 1190 1120 Balance 1190 1120 Intake: Oral 1190 1120 Other: # Voids 1 5 Weight 81.647 kg 09/24/24 03:37 09/24/24 03:37
[2024-09-24] MEDS ORDERED: DILTIAZEM CD 120 MG CAP.ER.24H PO SCH (10:30)
--- NOTE | 2024-09-24 11:58 | CA ---
Transthoracic Echo Report Name: Arnold Dickey Age: 59 Gender: M : 1965 Exam Date: 09/24/2024 09:31 Exam Location: [facility] Ht (in): 70 Wt (lb): 180 Ordering Physician: Elvira Aguirre Attending/Referring Phys: [id number], Timothy Burnisher And Bumper Nata Abel, KARLA Procedure CPT: Indications: LVF, tachycardia Cardiac Hx: Technical Quality: Fair Contrast 1: Total Dose (mL): Contrast 2: Total Dose (mL): MEASUREMENTS (Male / Female) Normal Values 2D ECHO LV Diastolic Diameter PLAX 5.2 cm 4.2 - 5.9 / 3.9 - 5.3 cm LV Systolic Diameter PLAX 4.2 cm IVS Diastolic Thickness 0.9 cm 0.6 - 1.0 / 0.6 - 0.9 cm LVPW Diastolic Thickness 1.0 cm 0.6 - 1.0 / 0.6 - 0.9 cm LV Relative Wall Thickness 0.4 RV Internal Dim ED PLAX 2.5 cm LA Systolic Diameter LX 2.7 cm 3.0 - 4.0 / 2.7 - 3.8 cm LV Diastolic Volume MOD BP 68.9 cm??? 67 - 155 / 56 - 104 cm??? LV Systolic Volume MOD BP 39.6 cm??? 22 - 58 / 19 - 49 cm??? LV Ejection Fraction MOD BP 42.5 % >= 55 % LV Cardiac Index MOD BP 984.9 cm???/min???m??? LV Diastolic Volume MOD 4C 72.2 cm??? LV Systolic Volume MOD 4C 42.2 cm??? LV Ejection Fraction MOD 4C 41.6 % LV Cardiac Index MOD 4C 1011.4 cm???/min???m??? LV Diastolic Length 4C 7.1 cm LV Systolic Length 4C 6.1 cm LV Diastolic Volume MOD 2C 62.8 cm??? LV Systolic Volume MOD 2C 36.0 cm??? LV Ejection Fraction MOD 2C 42.7 % LV Cardiac Index MOD 2C 903.2 cm???/min???m??? LV Diastolic Length 2C 6.7 cm LV Systolic Length 2C 5.9 cm LA Volume 44.4 cm??? 18 - 58 / 22 - 52 cm??? LA Volume Index 22.0 cm???/m??? 16 - 28 cm???/m??? M-MODE Aortic Root Diameter MM 3.7 cm LA Systolic Diameter MM 3.1 cm LA Ao Ratio MM 0.8 AV Cusp Separation MM 2.2 cm DOPPLER MV Area PHT 3.4 cm??? Mitral E Point Velocity 53.6 cm/s Mitral A Point Velocity 75.4 cm/s Mitral E to A Ratio 0.7 MV Deceleration Time 221.9 ms TR Peak Velocity 208.8 cm/s TR Peak Gradient 17.4 mmHg FINDINGS Left Ventricle Left ventricular ejection fraction is estimated at 45-50 %. Left ventricular cavity size normal. Left ventricular wall thickness normal. Mildly reduced global left ventricular systolic function. Right Ventricle Mild right ventricular dilatation. Prominent moderator band in right ventricle (normal variant). Right ventricular systolic pressure within normal limits. Right Atrium Normal right atrial size. Left Atrium Mild left atrial dilatation. Mitral Valve Structurally normal mitral valve. Mild mitral regurgitation. No mitral stenosis. Aortic Valve Trileaflet aortic valve. No aortic valve stenosis or regurgitation. Tricuspid Valve Structurally normal tricuspid valve. Mild tricuspid regurgitation. No tricuspid stenosis. Pulmonic Valve Structurally normal pulmonic valve. No pulmonic stenosis. Trace pulmonic regurgitation. Pericardium No pericardial or pleural effusion. Aorta Aorta at upper limits of normal. CONCLUSIONS 1. Mild global hypokinesis of the left ventricle 2. Mild mitral and tricuspid regurgitation with no evidence of pulmonary hypertension Previewed by: Dr. Junior Crowley MD (Electronically Signed) Final Date: 24 September 2024 11:57
[2024-09-24 14:24] VITALS: BMI 25.8
[2024-09-24] MEDS: MAGNESIUM SULFATE-D5W PMX 1 GM in DEXTROSE/WATER 1 100ML.BAG IVPB SCH (14:24)
[2024-09-24] MEDS: DILTIAZEM CD 120 MG CAP.ER.24H PO SCH (14:32)
[2024-09-24] MEDS: CALCIUM CARBONATE 500 MG CHEWABLE PO PRN (14:48)
--- NOTE | 2024-09-24 21:56 | P.PN ---
Subjective Progress Note Date: 09/24/24 Patient is a 59-year-old male with a past medical history of hypertension, hyperlipidemia, microscopic colitis, daily smoking half pack per day and alcohol use presents to ER with complaints of generalized weakness, lethargy and dizziness and shortness of breath. Patient states that he has been having na usea vomiting and unable to tolerate oral intake. Patient states that his hiatal hernia is also acting up. Patient states that he lost about 20 LB's during the last 2 to 3 weeks. Patient states that about 3 weeks ago he had lip swelling due to SHAAN inhibitor's and his blood pressure medications were changed to Cardizem 120 mg daily. He has been taking Cardizem for the past 2 weeks. He was also having exertional shortness of breath and palpitations. He felt like his heart was racing a fast. He has been having worsening symptoms and could not walk more than 10 feet without shortness of breath. Patient states that he did have stress test recently which was unremarkable. Denied any prior diagnosis of COPD. Patient does smoke about half pack per day and 6 drinks per week especially on the weekends. Patient follows with Dr. Diane. Chest x-ray showed no acute cardiopulmonary process. CT abdomen pelvis and chest showed no evidence of acute intrathoracic or abdominal process. Epiphr enic esophageal diverticulum. Fat-containing umbilical hernia. Hepatic steatosis. Correlate with diverticulosis. Interstitial lung markings are normal in the periphery correlate for NSIP. No evidence for lymphadenopathy or mass. Mild coronary artery calcifications. EKG showed normal sinus rhythm. Laboratory data showed WBC 8.8 hemoglobin 15.9 and MCV 97.3 and platelets 123, D-dimer 0.34 Sodium 129 potassium 3.2 chloride 83 bicarb is 29 BUN 11 creatinine 0.87 and blood sugar 134 magnesium 1.1 and total bili 2.3, AST 119, ALT 46 and alk phos 142 proBNP 90 and albumin 4.6 09/24/2024 Patient is lying in the bed. Awake alert and oriented. No complaints of chest pain. Shortness of breath is much improved. Patient has been afebrile. No cough or sputum production. Otherwise patient still complaining of generalized weakness improved from yesterday. Blood pressure is controlled. Cardizem is on hold. Laboratory data showed WBC 4.68 hemoglobin 13.2 and MCV 101.3 and platelets 102 Potassium 3.4 BUN 6.8 and creatinine 1.0 and blood sugar is 122 magnesium 1.8 total bili down to 1.3 and AST 99 ALT 35 and alk phos 118 procalcitonin level 0.24 and TSH 4.59 Patient is being continued on DuoNebs as needed. Pulmonary and cardiology is on board. 2D echocardiogram was ordered. Current medications reviewed. Objective - Vital Signs Vital signs: Vital Signs Temp 98.5 F 09/24/24 19:08 Pulse 88 09/24/24 19:08 Resp 20 09/24/24 19:08 BP 102/64 09/24/24 19:08 Pulse Ox 96 09/24/24 19:08 FiO2 Intake & Output 09/24/24 09/24/24 09/25/24 06:59 18:59 06:59 Intake Total 2310 540 Balance 2310 540 Weight 81.647 kg Intake: Oral 2310 540 Other: Voiding Method Toilet # Voids 5 - Exam PHYSICAL EXAMINATION: Patient is lying in the bed comfortably, no acute distress, awake alert and oriented.. HEENT: Normocephalic. Neck is supple. Pupils reactive. Nostrils clear. Oral cavity is moist. Neck reveals no JVD, carotid bruits, or thyromegaly. CHEST EXAMINATION: Trachea is central. Symmetrical expansion. Bibasilar exp iratory wheezing. Scattered coarse sounds. CARDIAC: Normal S1, S2 with no gallops. No murmurs ABDOMEN: Soft. Bowel sounds normal. No organomegaly. No abdominal bruits. Extremities: reveal no edema. No clubbing or cyanosis Neurologically awake, alert, oriented x3 with well-coordinated movements. No focal deficits noted Skin: No rash or skin lesions. Psychiatric: Coperative. Nonsuicidal Musculoskeletal: No joint swelling or deformity. Normal range of motion. - Labs CBC & Chem 7: 09/24/24 03:37 09/24/24 03:37 Labs: Abnormal Lab Results - Last 24 Hours (Table) 09/24/24 09/24/24 Range/Units 03:37 03:37 RBC 3.71 L (4.40-5.60) X 10*6/uL Hct 37.6 L (39.6-50.0) % MCV 101.3 H (80.0-97.0) FL MCH 35.6 H (27.0-32.0) pg Plt Count 102 L (140-440) X 10*3/uL Lymphocytes # 0.70 L (0.90-5.00) X 10*3/uL Eosinophils # 0.03 L (0.04-0.35) X 10*3/uL Potassium 3.4 L (3.5-5.5) mmol/L Chloride 95 L (96-109) mmol/L Anion Gap 13.70 H (4.00-12.00) mmol/L BUN 6.8 L (9.0-27.0) mg/dL BUN/Creatinine Ratio 6.80 L (12.00-20.00) Ratio Glucose 122 H (70-110) mg/dL Total Bilirubin 1.3 H (0.3-1.2) mg/dL AST 99 H (14-35) U/L Total Protein 5.8 L (6.2-8.2) g/dL Albumin 3.3 L (3.8-4.9) g/dL Albumin/Globulin Ratio 1.32 L (1.60-3.17) Ratio Assessment and Plan Assessment: Exertional shortness of breath with possible underlying COPD. CTA chest showed peripheral interstitial fibrosis, correlate for NSIP. D-dimer not elevated. proBNP 90. Generalized weakness, fatigue, dizziness, N/V and weight loss. Severe electrolyte imbalance with hypokalemia and hypomagnesemia Sinus tachycardia. Improved. Hepatic steatosis Ongoing nicotine addiction Alcohol use disorder Thrombocytopenia due to alcohol use Transaminitis AST greater than ALT and hyperbilirubinemia with bilirubin level 2.3. Improving. Hypertension Hyperlipidemia History of microscopic colitis Generalized anxiety/depression. Patient is on BuSpar and Cymbalta at home. GI prophylaxis Pepcid DVT prophylax with heparin subcu Plan: Patient will be continued on telemonitoring. Was given fluid bolus in the ER. Patient is tolerating oral diet. Continue to replace magnesium and potassium. Liver enzymes are improving. Continue with DuoNebs. Procalcitonin level is not elevated. TSH within normal limits. Cardizem is on hold.. Continue with thiamine multivitamins. Pulmonary and cardiology is on board. Follow-up closely. Follow-up 2D echocardiogram report. Smoking cessation and alcohol abstinence has been counseled extensively. Monitor for alcohol withdrawal symptoms. Anticipate discharge in next 24 hours. Time with Patient: Greater than 30
[2024-09-25 08:04] VITALS: BP 114/75; PULSE 83; RESP 17; TEMP 97.9
[2024-09-25 09:29] LABS: BUN/Creat Ratio 9.75 Ratio (12.00-20.00); Blood Urea Nitrogen 7.8 mg/dL (9.0-27.0); Calcium 8.7 mg/dL (8.7-10.3); Carbon Dioxide 24.7 mmol/L (21.6-31.8); Chloride 97 mmol/L (96-109); Glucose 118 mg/dL (70-110); Magnesium 1.9 mg/dL (1.5-2.4); Potassium 3.6 mmol/L (3.5-5.5); Sodium 136 mmol/L (135-145)
--- NOTE | 2024-09-25 12:08 | P.DS ---
Providers Date of admission: 09/23/24 14:42 Attending physician: Camryn Blanton Consults: 09/23/24 14:34 Consult Physician Urgent Consulting Provider: Sathya Toledo Consult Reason/Comments: Exertional dyspnea Do you want consulting provider notified?: Yes Consult Physician Urgent Consulting Provider: Artemio Fishman Consult Reason/Comments: Exertional dyspnea, tachycardia Do you want consulting provider notified?: Yes Primary care physician: Dennis Diane Hospital Course: Patient 59-year-old male admitted secondary to shortness of breath which was believed to be secondary to angioedema from SHAAN inhibitor's. His symptoms were discontinued his angioedema resolved patient is presently not on any systemic steroids patient swelling improved. Patient was also found to have pulmonary fibrosis on the CT scan for which patient will follow-up with pulmonary as an outpatient patient will be discharged today. REVIEW OF SYSTEMS: All other systems are negative except those mentioned in the HPI PHYSICAL EXAMINATION: GENERAL: The patient is alert and oriented x3, not in any acute distress. Well developed, well nourished. HEENT: Pupils are round and equally reacting to light. EOMI. No scleral icterus. No conjunctival pallor. Normocephalic, atraumatic. No pharyngeal erythema. No thyromegaly. CARDIOVASCULAR: S1 and S2 present. No murmurs, rubs, or gallops. PULMONARY: Chest is clear to auscultation, no wheezing or crackles. ABDOMEN: Soft, nontender, nondistended, normoactive bowel sounds. No palpable organomegaly. MUSCULOSKELETAL: No joint swelling or deformity. EXTREMITIES: No cyanosis, clubbing, or pedal edema. NEUROLOGICAL: Gross neurological examination did not reveal any focal deficits. SKIN: No rashes. Assessment and plan Angioedema secondary to SHAAN inhibitor patient is not requiring any blood pressure medications at this time. Patient was discontinued Exertional shortness of breath secondary angioedema patient is also found to have pulmonary fibrosis for which patient will follow-up with pulmonary as an outpatient Generalized weakness, fatigue, dizziness, N/V and weight loss. Follow-up with Dr. Diane as an outpatient Severe electrolyte imbalance with hypokalemia and hypomagnesemia Sinus tachycardia. Improved. Hepatic steatosis Ongoing nicotine addiction Alcohol use disorder Thrombocytopenia due to alcohol use Transaminitis AST greater than ALT and hyperbilirubinemia with bilirubin level 2.3. Improving. Hypertension Hyperlipidemia History of microscopic colitis Generalized anxiety/depression. Patient is on BuSpar and Cymbalta at home. Patient Condition at Discharge: Fair Plan - Discharge Summary Discharge Rx Participant: Yes New Discharge Prescriptions: New Thiamine [Vitamin B-1] 100 mg PO DAILY #30 tab Multivitamins, Thera [Multivitamin (formulary)] 1 each PO DAILY #30 tab Continue Atorvastatin [Lipitor] 20 mg PO DAILY Triamcinolone 0.5% Ointment 1 applic TOPICAL BID PRN PRN Reason: psoriasis tadalafiL 10 mg PO DAILY PRN PRN Reason: E.D. DULoxetine HCL [Cymbalta] 60 mg PO DAILY busPIRone HCl [Buspar] 5 mg PO BID PRN PRN Reason: Anxiety Ibuprofen [Motrin Ib] 600 mg PO Q6H PRN PRN Reason: Pain Ofloxacin 0.3% Ophth Soln [Ocuflox Ophth Soln] 1 drop LEFT EYE QID dilTIAZem HCL [Tiazac] 120 mg PO DAILY Discharge Medication List Atorvastatin [Lipitor] 20 mg PO DAILY 04/19/19 [History] DULoxetine HCL [Cymbalta] 60 mg PO DAILY 09/23/24 [History] Ibuprofen [Motrin Ib] 600 mg PO Q6H PRN 09/23/24 [History] Ofloxacin 0.3% Ophth Soln [Ocuflox Ophth Soln] 1 drop LEFT EYE QID 09/23/24 [History] Triamcinolone 0.5% Ointment 1 applic TOPICAL BID PRN 09/23/24 [History] busPIRone HCl [Buspar] 5 mg PO BID PRN 09/23/24 [History] dilTIAZem HCL [Tiazac] 120 mg PO DAILY 09/23/24 [History] tadalafiL 10 mg PO DAILY PRN 09/23/24 [History] Multivitamins, Thera [Multivitamin (formulary)] 1 each PO DAILY #30 tab 09/24/24 [Rx] Thiamine [Vitamin B-1] 100 mg PO DAILY #30 tab 09/24/24 [Rx] Follow up Appointment(s)/Referral(s): Sathya Toledo MD [STAFF PHYSICIAN] - 1 Week Junior Crowley MD [STAFF PHYSICIAN] - 2 Weeks Dennis Diane MD [Primary Care Provider] - 1-2 days Discharge Disposition: HOME SELF-CARE
--- NOTE | 2024-09-25 13:10 | P.PN ---
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 He denies history of diabetes. We have been asked to evaluate patient for exer tional dyspnea and tachycardia. Patient states things started when he had an allergic reaction to lisinopril which started with lightheadedness and dizziness and then vomiting and tongue swelling. Following that this triggered his hiatal hernia and he had nausea, decreased appetite weight loss.. 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 Patient states th at his heart rate was going from 80 to at rest 230 with standing. At this time he still has some dizziness. Also felt like he could not catch his breath which is improved but still there. He states he is now able to take a deep breath. He states about 1-1/2 years ago he had episodes of passing out that was unexplained and he did have an event monitor at that time. Dyspnea on exertion is not as bad. He states he has chronic wheezing in the morning and a smoker's cough. No chest pain or chest pressure. Blood pressure 131/83, heart rate in the 80s, pulse ox 96% on room air. Potassium and magnesium have been replaced. Patient is an active tobacco smoker. He drinks alcohol occasionally. -EKG: Sinus rhythm no acute changes. -Chest x-ray: No acute process. -CT chest abdomen pelvis: No acute process. Epiphrenic esophageal diverticulum. Hepatic steatosis. Colonic diverticulosis. Interstitial lung markings are normal in the periphery correlate for NSIP. No lymphadenopathy or mass. Mild coronary artery calcification. -Laboratory studies: WBC 4.6, hemoglobin 13.2. Initial sodium 129 and now 136. Potassium initially 3.2 and now 3.4. Magnesium 1.6. BUN 6.8 creatinine 1.0. Total bilirubin 1.3, AST 99. Troponin negative x 1. proBNP 90. TSH 4.59. Procalcitonin 0.24. -Home cardiac medications: Atorvastatin 20 mg daily, diltiazem 120 mg daily. -Lexiscan Cardiolite stress test performed at [facility] 09/13/24: No reversible ischemia. 09/25/2024 The patient was seen and examined resting comfortably in bed. Overall he is feeling better. Cardiogram showed mildly reduced LV systolic function with an ejection fraction of 45 to 50%, mild MR and mild TR. Physical examination: Gen: This is 59-year-old male in no acute distress VS: reviewed HEENT: Head is atraumatic, normocephalic. Pupils equal, round. Sclerae is anicteric. NECK: Supple. No JVD. LUNGS: Clear to auscultation. No wheezes or rhonchi. No intercostal retractions. HEART: Regular rate and rhythm. No murmur. ABDOMEN: Soft No tenderness. EXTREMITIES: No pedal edema. No calf tenderness. NEUROLOGICAL: Patient is awake, alert and oriented x3. Assessment: Mild cardiomyopathy, nonischemic Hypokalemia and hypomagnesemia, improved Elevated liver function tests Hypertension Hyperlipidemia Tobacco use and dependence Plan: Smoking cessation: Nicotine patch and patient will be provided [place] quit line information at discharge From cardiology's perspective patient is cleared for discharge. Patient may follow-up in the office with Dr. Crowley in 2 weeks. Nurse practitioner note has been reviewed, I agree with documented findings and plan of care. Patient was seen and examined. Objective - Vital Signs Vital signs: Vital Signs Temp 97.9 F 09/25/24 07:05 Pulse 83 09/25/24 07:05 Resp 17 09/25/24 07:05 BP 114/75 09/25/24 07:05 Pulse Ox 97 09/25/24 07:05 FiO2 Intake & Output 09/24/24 09/25/24 09/25/24 18:59 06:59 18:59 Intake Total 540 480 Balance 540 480 Weight 81.647 kg Intake: Oral 540 480 Other: Voiding Method Toilet Toilet # Voids 2 - Labs CBC & Chem 7: 09/24/24 03:37 09/25/24 03:23 Labs: Abnormal Lab Results - Last 24 Hours (Table) 09/25/24 Range/Units 03:23 Anion Gap 14.30 H (4.00-12.00) mmol/L BUN 7.8 L (9.0-27.0) mg/dL BUN/Creatinine Ratio 9.75 L (12.00-20.00) Ratio Glucose 118 H (70-110) mg/dL Vitamin B12 1498.0 H (200.0-944.0) pg/mL
--- NOTE | 2024-09-25 15:03 | P.PN ---
Subjective Progress Note Date: 09/25/24 Patient is a 59-year-old male with past medical history significant for hyperlipidemia, hypertension. Presented to the emergency department yesterday morning with a chief complaint of extreme weakness. Also, associated fatigue, heart palpitations, and difficulty breathing on exertion. Did have a near s yncopal event where he fell and hit his face at work. Patient states this all started 3 weeks ago after having allergic reaction which was attributed to his lisinopril. He had facial and tongue swelling. Lisinopril is since been discontinued. He states that he has had some nausea and vomiting and unable to eat. His appetite has been severely reduced. He has lost approximately 20 pounds over the last few weeks. Pulmonary consultation was placed for exertional dyspnea. Patient has no known pre-existing lung disease. He does smoke cigarettes 1/2 packs/day. Workup in the emergency department including a CT of the chest, abdomen, pelvis without contrast remarkable for predominantly peripheral based interstitial fibrotic changes. No widespread honeycombing. Concerning for possible NSIP. No acute cardiopulmonary process. Labs including a CBC with a WBC count of 8.9, hemoglobin 15.9, platelets 123. D-dimer 0.34. BMP with a sodium 129, Tessman 3.2, chloride 83, BUN 11, creatinine 0.87, glucose 134. Magnesium 1.1. Troponin 0.014. NT proBNP 90. EKG: Normal sinus rhythm, rate 91 bpm, no ectopy. No acute ischemic changes. Did have a Lexiscan stress stress on September 13, which did not show any stress-induced ischemic changes. TSH 4.59. Procalcitonin level 0.24. Patient currently being evaluated on the general medical floor. He is currently resting comfortably on room air. Denies any chest pain. Denies any cough or sputum production. Denies any fevers or chills. Denies any history of autoimmune disease. States his severe weakness and shortness of breath have resolved after electrolyte replacement. Most recent vital signs including a temperature of 97.9 F, heart rate 85 bpm, blood pressure 109/72 mmHg, nontachypneic, SpO2 was recorded at 95% on room air. The patient is seen today September 25, 2024 in follow-up on the regular medical floor. He is currently sitting up in bed. Awake and alert in no acute distress. Maintaining good O2 saturations in the 90s on room air oxygen. He denies any shortness of breath, cough or congestion. He has been afebrile. Hemodynamically stable. Sodium 136. Potassium 3.6. Bicarb 25. BUN 8. Creatinine 0.8. Glucose 118. He remains on heparin for DVT prophylaxis. NicoDerm patch in place. Objective - Vital Signs Vital signs: Vital Signs Temp 97.9 F 09/25/24 07:05 Pulse 83 09/25/24 07:05 Resp 17 09/25/24 07:05 BP 114/75 09/25/24 07:05 Pulse Ox 97 09/25/24 07:05 FiO2 Intake & Output 09/24/24 09/25/24 09/25/24 18:59 06:59 18:59 Intake Total 540 480 Balance 540 480 Weight 81.647 kg Intake: Oral 540 480 Other: Voiding Method Toilet Toilet # Voids 2 - Exam GENERAL EXAM: Alert, active, 59-year-old male, on room air oxygen, comfortable i n no apparent distress. HEAD: Normocephalic. EYES: Normal reaction of pupils, equal size. NOSE: Clear with pink turbinates. THROAT: No erythema or exudates. NECK: No masses, no JVD. CHEST: No chest wall deformity. LUNGS: Equal air entry with no crackles, wheeze, rhonchi or dullness. CVS: S1 and S2 normal with no audible murmur, regular rhythm. ABDOMEN: No hepatosplenomegaly, normal bowel sounds, no guarding or rigidity. SPINE: No scoliosis or deformity SKIN: No rashes CENTRAL NERVOUS SYSTEM: No focal deficits, tone is normal in all 4 extremities. EXTREMITIES: There is no peripheral edema. No clubbing, no cyanosis. Peripheral pulses are intact. - Labs CBC & Chem 7: 09/24/24 03:37 09/25/24 03:23 Labs: Abnormal Lab Results - Last 24 Hours (Table) 09/25/24 Range/Units 03:23 Anion Gap 14.30 H (4.00-12.00) mmol/L BUN 7.8 L (9.0-27.0) mg/dL BUN/Creatinine Ratio 9.75 L (12.00-20.00) Ratio Glucose 118 H (70-110) mg/dL Vitamin B12 1498.0 H (200.0-944.0) pg/mL Assessment and Plan Assessment: Recent allergic reaction/angioedema, secondary to lisinopril, which has since been discontinued Multiple electrolyte imbalances including hypomagnesemia, hypokalemia, hyponatremia; which are being corrected Generalized weakness, secondary to above Exertional dyspnea Pulmonary fibrosis; CT of the chest, abdomen, pelvis without contrast remarkable for predominantly peripheral based interstitial fibrotic changes. No widespread honeycombing. Concerning for possible NSIP Chronic tobacco use, currently smoking 1/2 pack/day Hypertension History of hyperlipidemia Anxiety/depression Plan: The patient was seen and evaluated Labs and medications reviewed Stable and on room air oxygen Cleared for discharge from the pulmonary standpoint Educated regarding the importance of smoking cessation NicoDerm patch remains in place Follow-up in our office in 1 week Will plan for follow-up CAT scan in 6 months I have personally seen and examined the patient, performed the documentation and the assessment and plan as written. Number of minutes spent on the visit: 10 Dictation was produced using [employer] dictation software. Please excuse any gra mmatical, word or spelling errors.
== END 2024-09-25 13:21 | disposition home or self-care (01) ==
LOC: EC 11:06 → 4SSUR 14:42 → INTOOBSV 14:42 → 4SSUR 15:43
PROVIDERS: ADMIT Internal Medicine; ATTEND Internal Medicine
DX: T78.3XXA Angioneurotic edema, initial encounter (principal); T46.4X5A Adverse effect of angiotensin-converting-enzyme inhibitors, initial encounter; Y65.8 Other specified misadventures during surgical and medical care; R06.09 Other forms of dyspnea; R79.89 Other specified abnormal findings of blood chemistry; E87.6 Hypokalemia; E83.42 Hypomagnesemia; E87.1 Hypo-osmolality and hyponatremia; R00.0 Tachycardia, unspecified; R53.83 Other fatigue; R42 Dizziness and giddiness; R11.2 Nausea with vomiting, unspecified; R63.4 Abnormal weight loss; I10 Essential (primary) hypertension; E78.5 Hyperlipidemia, unspecified; J84.10 Pulmonary fibrosis, unspecified; F32.A Depression, unspecified; F41.1 Generalized anxiety disorder; D69.59 Other secondary thrombocytopenia; K76.0 Fatty (change of) liver, not elsewhere classified; I42.8 Other cardiomyopathies; F17.210 Nicotine dependence, cigarettes, uncomplicated; Z68.25 Body mass index [BMI] 25.0-25.9, adult; Z79.899 Other long term (current) drug therapy; Z88.0 Allergy status to penicillin
CPT/HCPCS: 96376 ×3; 96365 ×2; 96366 ×3; 96372 ×2; 96375; 96368; 99291; 36415; 94640; 94760; 93005; 93306; 85379; 82747; 83880; 80053 ×2; 80048; 84443; 82607; 83605; 83735 ×3; 84484; 85025 ×2; 85610; 85730; 83036; 84145; 71046; 71260; 74177; G0378 ×3; S4990 ×2; J1644 ×2; J3475 ×2; J3480; Q9967; J1308 ×3